=== PATIENT | female | born 1960 | race Caucasian/White ===

== ENCOUNTER 2017-12-17 08:27 | Outpatient (CLI) | payer OTHER ==
--- NOTE | 2017-12-17 11:34 | MMO ---
BILATERAL SCREENING MAMMOGRAM: DATE: 12/17/17 HISTORY: 57-year-old female for screening mammography. COMPARISON: 12/22/15, 12/23/14, 07/09/14. FINDINGS: Bilateral MLO and CC views of the breasts show scattered fibroglandular breast tissue. Bilateral vasc ular calcifications are seen. Other benign-appearing calcifications are seen in the breasts. There is no evidence of suspicious mass, suspicious cluster of microcalcifications, or area of architectural distortion. Interpretation of this mammogram was performed with the assistance of computer-aided detection. IMPRESSION: BIRADS 2: Benign Finding(s) Annual screening mammography is recommended. POS: [facility]
== END 2017-12-17 08:28 | disposition home or self-care (01) ==
LOC: SCSMAMMO 08:27
PROVIDERS: ATTEND Family Medicine
DX: Z12.31 Encounter for screening mammogram for malignant neoplasm of breast (principal)
CPT/HCPCS: 77067